=== PATIENT | male | born 1945 | race African-American/Black ===

== ENCOUNTER 2017-05-11 14:10 | Inpatient (IN) | payer OTHER ==
[2017-05-11] VITALS (23 sets, daily range): BP systolic 96–128; BP diastolic 43–77
[~2017-05-11] VITALS: Ht 172.7 cm; Wt 70.8 kg
--- NOTE | ~2017-05-11 | EKG ---
[address] [address] ELECTROCARDIOGRAM REPORT Name: EVANS SOLANO Room #: 244-P ADM IN M.R.#: [id number] Admission: 05/11/17 Attend Phys: Kike Kingsley MD Discharge: Date of : 43 Report #: [id number] THIS REPORT FOR: //name// [facility] ED Test Date: 2017-05-11 Test Time: 15:13:26 Pat Name: EVANS SOLANO Department: Room: [facility] Gender: M Entry Operator: STEVENSON : 1945 Requested By: Chantel Frost Order Number: [id number] MD: Hussain So Measurements Intervals [place] Rate: 114 P: 10 VA: 150 QRS: 6 QRSD: 99 T: 29 QT: 311 QTc: 429 Interpretive Statements Supraventricular rhythm, uninterpretable due to baseline artifact Recommend repeat tracing in the absence of artifact Compared to ECG 05/04/2016 09:23:55 no gross differences in the ST or T-wave segments Electronically Signed On 05-13-2017 12:50:00 CDT by Hussain So [email or web address] <ELECTRONICALLY SIGNED> By: Hussain So MD, [facility] 05/13/17 1250 1513 1513 Hussain So MD, [facility] /EPI
--- NOTE | ~2017-05-11 | EKG ---
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: JOHNNY : 1945 Requested By: Chantel Frost Order Number: [id number] MD: Hussain So Measurements Intervals [place] Rate: 97 P: 78 OK: 181 QRS: 31 QRSD: 69 T: 54 QT: 356 QTc: 452 Interpretive Statements Sinus rhythm Early R-wave progression ST segment abnormality Compared to ECG 05/04/2016 09:23:55 Unable to reasonably compared due to marked baseline artifact on previous tracing Electronically Signed On 05-13-2017 12:52:44 CDT by Hussain So [email or web address] <ELECTRONICALLY SIGNED> By: Hussain So MD, [facility] 05/13/17 1252 1750 1750 Hussain So MD, [facility] /EPI
[~2017-05-11 14:10] MED LIST: ASPIR 8181 MG PO; BUPROPION HCL200 MG PO; FLOMAX0.4 MG PO; HYDROCHLOROTHIA25 M2 PO; LEVOTHYROXIN0.025 MG PO; LISINOPRIL20 MG PO; NORVASC5 MG PO; OMEPRAZOLE40 MG PO; ONDANSETRON HCL4 M2 PO; PRAVACHOL40 MG PO; SINEMET 25-1001 EAC1 PO; UNICOMPLEX M TA1 TA1 PO
[2017-05-11 15:02] LABS: MCH 23.8 pg (26.0-34.0); MCHC 29.8 g/dL (28.0-37.0); MCV 79.7 fL (80.0-100.0); PLATELET COUNT 456 thou/uL (150-400); RBC 2.46 mil/uL (4.50-6.00); RDW 17.4 % (10.5-14.5); WBC 18.9 thou/uL (4.0-11.0)
[2017-05-11 15:04] LABS: MANUAL DIFF YES
[2017-05-11 15:05] LABS: HEMOGLOBIN 5.8 gm/dL (14.0-18.0)
[2017-05-11 15:06] LABS: HEMATOCRIT 19.6 % (42.0-52.0)
[2017-05-11 15:10] LABS: ANION GAP 14 mmol/L (7-16); BUN 22 mg/dL (7-18); CALCIUM 6.7 mg/dL (8.5-10.1); CHLORIDE 113 mmol/L (98-107); CO2 19 mmol/L (21-32); GLUCOSE 122 mg/dL (74-106); SODIUM 146 mmol/L (136-145)
[2017-05-11 15:18] LABS: ALBUMIN 2.1 g/dL (3.4-5.0); ALKALINE PHOSPHATASE 47 U/L (46-116); POTASSIUM 2.6 mmol/L (3.5-5.1); SGOT 12 U/L (15-37); SGPT 5 U/L (30-65); TOTAL BILIRUBIN 0.2 mg/dL (<0.1-1.0); TOTAL PROTEIN 5.2 g/dL (6.4-8.2); TROPONIN-I < 0.04 ng/mL (<0.04-0.07)
[2017-05-11 15:19] LABS: INR 1.2; PROTIME 12.3 Seconds (9.3-11.4)
[2017-05-11 15:37] LABS: ABSOLUTE NEUTROPHILS 15.7 thou/uL (1.4-8.2); ANISOCYTOSIS 1+; HYPOCHROMASIA 1+; TOTAL CELL COUNT 100
[2017-05-11 16:56] LABS: URINE BILIRUBIN NEGATIVE (Negative); URINE BLOOD TRACE (Negative); URINE COLOR YELLOW; URINE GLUCOSE-RANDOM* NEGATIVE (Negative); URINE KETONES NEGATIVE (Negative); URINE NITRITE POSITIVE (Negative); URINE PROTEIN (DIPSTICK) NEGATIVE (Negative); URINE SPECIFIC GRAVITY >= 1.030 (1.003-1.035); URINE UROBILINOGEN 0.2 E.U./dl (0.2-1.0)
[2017-05-11 17:06] LABS: BACTERIA 1-9 Few /HPF (None Seen); CASTS None Seen /LPF (None Seen); CRYSTALS None Seen /LPF (None Seen); SQUAMOUS None Seen /LPF (0-3); URINE RBC None Seen /HPF (0-2); URINE WBC 0-5 Rare /HPF (0-5)
[2017-05-11 17:38] LABS: ABG SAMPLE TYPE VENOUS; BE(vivo) -4.4 mmol/L (-2 to +3); HCO3 20.8 mmol/L (22.0-26.0); LACTATE 1.53 mmol/L (0.5-2.0); O2(CT) 2.6 mL/dL (15.0-23.0); O2Hb VENOUS 26.5 (65.0-85.0); PCO2 VENOUS 38.7 mmHg (41.0-51.0); PO2 VENOUS 21.4 mmHg (35.0-45.0); sO2 VENOUS 33.6 % (65.0-85.0)
[2017-05-11 17:39] LABS: STICK SITE LINE
[2017-05-11 20:58] LABS: HEMATOCRIT 19.6 % (42.0-52.0); HEMOGLOBIN 6.1 gm/dL (14.0-18.0)
[2017-05-12] VITALS (95 sets, daily range): BP systolic 109–184; BP diastolic 58–104
[2017-05-12 05:14] LABS: HEMATOCRIT 24.9 % (42.0-52.0); MCH 25.5 pg (26.0-34.0); MCHC 32.1 g/dL (28.0-37.0); MCV 79.4 fL (80.0-100.0); RBC 3.13 mil/uL (4.50-6.00); RDW 17.9 % (10.5-14.5); WBC 11.8 thou/uL (4.0-11.0)
[2017-05-12 05:31] LABS: CALCIUM 8.3 mg/dL (8.5-10.1); CREATININE 1.1 mg/dL (0.7-1.3)
[2017-05-12 05:32] LABS: POTASSIUM 3.7 mmol/L (3.5-5.1)
[2017-05-12 11:59] LABS: HEMATOCRIT 24.5 % (42.0-52.0); HEMOGLOBIN 8.1 gm/dL (14.0-18.0)
[2017-05-13] VITALS (37 sets, daily range): BP systolic 115–172; BP diastolic 59–116
[2017-05-13 04:25] LABS: CALCIUM 8.1 mg/dL (8.5-10.1); CREATININE 1.2 mg/dL (0.7-1.3); POTASSIUM 3.7 mmol/L (3.5-5.1)
[2017-05-14 00:10] VITALS: BP 120/75
[2017-05-14 04:30] VITALS: BP 146/83
[2017-05-14 04:49] LABS: HEMATOCRIT 24.4 % (42.0-52.0); HEMOGLOBIN 7.7 gm/dL (14.0-18.0); MCH 25.2 pg (26.0-34.0); MCHC 31.7 g/dL (28.0-37.0); MCV 79.3 fL (80.0-100.0); RBC 3.07 mil/uL (4.50-6.00); RDW 17.9 % (10.5-14.5)
[2017-05-14 04:56] LABS: CALCIUM 8.1 mg/dL (8.5-10.1); CREATININE 1.2 mg/dL (0.7-1.3); POTASSIUM 3.3 mmol/L (3.5-5.1)
[2017-05-14 07:52] VITALS: BP 135/83
[2017-05-14 07:54] VITALS: BP 119/62
[2017-05-14 16:29] VITALS: BP 126/61
[2017-05-14 19:49] VITALS: BP 128/66
[2017-05-15 05:05] VITALS: BP 156/74
[2017-05-15 05:16] LABS: HEMATOCRIT 25.9 % (42.0-52.0); HEMOGLOBIN 8.6 gm/dL (14.0-18.0)
[2017-05-15 07:32] VITALS: BP 149/79
[2017-05-15] MEDS ORDERED: AUGMENTIN 875875 MG PO (12:54)
[2017-05-15] MEDS ORDERED: FERREX 150 PLU1 EAC1 PO (12:55)
[2017-05-15] MEDS ORDERED: DUONEB 2.5-0.5 M3 ML INH (12:55)
== END 2017-05-15 17:09 | DRG 871 ==
LOC: ER 14:10 → ICU 17:28 → EROBS 17:28 → ICU 17:30 → 4E 05-13 21:33
PROVIDERS: Hospitalist; Internal Medicine Gastroenterology; Physician Assistant
PROC: 30233N1 Transfusion of Nonautologous Red Blood Cells into Peripheral Vein, Percutaneous Approach (ICD-10-PCS; principal; 2017-05-11)
PROC: 02HV33Z Insertion of Infusion Device into Superior Vena Cava, Percutaneous Approach (ICD-10-PCS; principal; 2017-05-11)
DX: A41.9 Sepsis, unspecified organism (principal); E43 Unspecified severe protein-calorie malnutrition; J18.9 Pneumonia, unspecified organism; K92.2 Gastrointestinal hemorrhage, unspecified; I69.354 Hemiplegia and hemiparesis following cerebral infarction affecting left non-dominant side; F32.9 Major depressive disorder, single episode, unspecified; F41.9 Anxiety disorder, unspecified; E03.9 Hypothyroidism, unspecified; E78.5 Hyperlipidemia, unspecified; I10 Essential (primary) hypertension; F02.80 Dementia in other diseases classified elsewhere, unspecified severity, without behavioral disturbance, psychotic disturbance, mood disturbance, and anxiety; G20 Parkinson's disease; N40.0 Benign prostatic hyperplasia without lower urinary tract symptoms; R65.20 Severe sepsis without septic shock; Y95 Nosocomial condition; E83.51 Hypocalcemia; E87.6 Hypokalemia; D64.9 Anemia, unspecified; W05.0XXA Fall from non-moving wheelchair, initial encounter; Z87.891 Personal history of nicotine dependence; Y93.89 Activity, other specified; Y92.126 Garden or yard of nursing home as the place of occurrence of the external cause; Y99.8 Other external cause status; Z68.23 Body mass index [BMI] 23.0-23.9, adult; Z79.899 Other long term (current) drug therapy
CPT/HCPCS: 10204; 10783; 27000

== ENCOUNTER → 2017-06-05 | Outpatient (CLI) | payer OTHER ==
[~2017-06-05] MED LIST changes: +AUGMENTIN 875875 MG PO; +DUONEB 2.5-0.5 M3 ML INH; +FERREX 150 PLU1 EAC1 PO
== END | disposition home or self-care (01) ==
LOC: GI 06:46
DX: K31.819 Angiodysplasia of stomach and duodenum without bleeding (principal); Z98.890 Other specified postprocedural states; Z79.899 Other long term (current) drug therapy

== ENCOUNTER → 2017-08-06 | Outpatient (CLI) | payer OTHER ==
--- NOTE | ~2017-08-06 | P ---
[facility] [place] [address] PROCEDURE REPORT Name: EVANS SOLANO [facility]: [facility] [id number] Admission: 08/06/17 Attend Phys: Jordan Parker Discharge: Date of : 43 Report #: [id number] THIS REPORT FOR: //name// CC: Jordan Bryan MD DATE OF SERVICE: 08/06/2017 PROCEDURE PERFORMED: Upper endoscopy with esophageal dilation. HISTORY OF PRESENT ILLNESS: The patient is a 72-year-old male complains of dysphagia. Plan is for EGD. PROCEDURE: The risks and benefits of the procedure were explained to the patient, those risks including, but not limited to bleeding, perforation, and the risk of sedation. He understood these risks and gave informed consent. Sedation was given using propofol per anesthesia. Next, using a standard [email or web address] upper endoscope, the scope was placed in the patient's mouth and advanced under direct vision through the esophagus, stomach and into the second portion of the duodenum. The esophagus was normal throughout. The GE junction was normal. Upon entering the stomach, a small hiatal hernia was noted. Overall, the gastric mucosa was normal. The pylorus was normal and patent. The duodenal bulb, first and second portion were all normal. The scope was then brought back up into the patient's stomach and a Savary guidewire was inserted through the scope, leaving the guidewire in place as the scope was then withdrawn. Next, a 48-[place] Savary dilation of the esophagus was performed without difficulty. The wire and dilator were removed. The scope was reintroduced into the patient's stomach. There was no evidence of mucosal tear after dilation. The scope was then withdrawn and the procedure terminated. The patient tolerated the procedure well. IMPRESSION: 1. Small hiatal hernia. 2. Otherwise, normal upper endoscopy. RECOMMENDATIONS: 1. Observe the patient post-dilation. 2. If the patient has continued dysphagia, consider swallow study or even esophageal manometry. [facility] [address] [place] [address] PROCEDURE REPORT Name: DOMINIK SOLANOMY Room #: REG HAJA Bergman#: [id number] Admission: 08/06/17 Attend Phys: Jrodan Parker Discharge: Date of : 43 Report #: [id number] Thank you for allowing me to participate in his care. By: 1157 1437 Jordan Ye MD /nt
== END | disposition home or self-care (01) ==
LOC: GI 08:18
DX: R13.19 Other dysphagia (principal); K64.8 Other hemorrhoids; D64.9 Anemia, unspecified; Z79.899 Other long term (current) drug therapy